=== PATIENT | female | born 1990 | race Caucasian/White ===

== ENCOUNTER 2016-11-19 20:24 | Outpatient (CLI) | payer MEDICAID ==
[2016-11-19 20:57] LABS: APPEARANCE,URINE CLEAR; BILIRUBIN,URINE NEGATIVE (NEGATIVE); GLUCOSE, URINE NEGATIVE (NEGATIVE); KETONES,URINE NEGATIVE (NEGATIVE); LEUKOCYTE ESTERASE,URINE MODERATE (NEGATIVE); NITRITE,URINE NEGATIVE (NEGATIVE); PROTEIN,URINE NEGATIVE (NEGATIVE); URINE SPECIFIC GRAVITY 1.006; UROBILINOGEN,URINE NEGATIVE mg/dL (<2.0)
[2016-11-19 21:20] LABS: URINE BARBITURATES SCREEN NEGATIVE; URINE OPIATES LOW NEGATIVE; URINE PHENCYCLIDINE SCREEN NEGATIVE
[2016-11-19 21:23] LABS: URINE METHADONE SCREEN UNCONFIRMED POSITIVE
--- NOTE | 2016-11-20 00:21 | L&D Discharge Summary ---
OB Discharge Summary Datetime Report Generated by CPN: 11/20/2016 00:20 DISCHARGE DIAGNOSIS Diagnosis/Symptoms: Other Diagnoses/Symptoms Other: false labor Gestation: 34.5 Number of Babies in Womb: 1 Parity: 3 DIET/ACTIVITY/RESTRICTIONS Diet: Regular Activity: Normal Activity Activity Restrictions: No Exercising; No Lifting; No Driving; Minimize Walking; No Sexual Activity TEACHING/INSTRUCTIONS/REFERRALS Instructions Given To: patient Instructions Understood: Patient Verbalized Understanding Referrals: None Educational Materials- Other: pre term labor DISCHARGE INFORMATION Discharge Date/Time: 11/19/2016 21:17 Discharged To: Home Discharge Provider Name: Dr Babcock Accompanied By: sig other Discharge Method: Wheelchair Condition: Stable FOLLOW UP INFORMATION Follow Up With: [facility] Follow Up On: Tomorrow Follow Up Phone Number: [facility] -
== END 2016-11-19 21:20 | disposition home or self-care (01) ==
LOC: LC 20:24
PROVIDERS: ATTEND Obstetrics & Gynecology
PROC: 4A1HXCZ Monitoring of Products of Conception, Cardiac Rate, External Approach (ICD-10-PCS; principal; 2016-11-19)
DX: O47.03 False labor before 37 completed weeks of gestation, third trimester (principal); Z3A.34 34 weeks gestation of pregnancy
CPT/HCPCS: 59025; 80307; 81001

== ENCOUNTER 2016-11-21 11:35 | Inpatient (IN) | payer MEDICAID ==
--- NOTE | 2016-11-21 12:02 | Non Stress Test Report ---
Non Stress Test Datetime Report Generated by CPN: 11/21/2016 12:02 DEMOGRAPHIC Test Number: 1 EGA NST: 34.5 INDICATION Indication for Study: Other Indication for Study (NST) Other: labor check MONITORING Time on Monitor: 11/19/2016 20:30 Time off Monitor: 11/19/2016 21:16 NST Duration: 46 NST INTERVENTIONS NST Interventions: PO Hydration Physician Notified NST: Dr Babcock BABY A: [id number] BABY A Movement : Present Contraction Frequency : none FHR Baseline : 130 Accelerations : 15X15 Decelerations : None NST Review: Meets Criteria for Reactive NST NST Review and Verified By : JAMIE Sexton NST Results: Reactive NST REPORT Report Trigger: Send Report
[2016-11-21 12:36] LABS: AMNISURE (ROM) NEGATIVE (NEGATIVE)
[2016-11-21 12:44] LABS: APPEARANCE,URINE CLEAR; BILIRUBIN,URINE NEGATIVE (NEGATIVE); GLUCOSE, URINE NEGATIVE (NEGATIVE); KETONES,URINE NEGATIVE (NEGATIVE); LEUKOCYTE ESTERASE,URINE SMALL (NEGATIVE); NITRITE,URINE NEGATIVE (NEGATIVE); PROTEIN,URINE NEGATIVE (NEGATIVE); URINE SPECIFIC GRAVITY 1.009; UROBILINOGEN,URINE NEGATIVE mg/dL (<2.0)
[2016-11-21] MEDS ORDERED: PENICILLIN G-K 5 MILLION UNIT VIAL ONE (12:46)
[2016-11-21] MEDS ORDERED: OXYTOCIN/NORMAL SALINE 20 UNIT/1,000 ML RTUINJ ONE (12:47)
[2016-11-21 12:57] LABS: URINE BARBITURATES SCREEN NEGATIVE; URINE OPIATES LOW NEGATIVE; URINE PHENCYCLIDINE SCREEN NEGATIVE
[2016-11-21 13:01] LABS: URINE METHADONE SCREEN UNCONFIRMED POSITIVE
[2016-11-21] MEDS ORDERED: RINGERS SOLUTION,LACTATED 1,000 ML IV PRN (13:04)
[2016-11-21] MEDS ORDERED: RINGERS SOLUTION,LACTATED 300 ML IV ONE (13:04)
[2016-11-21] MEDS ORDERED: OXYTOCIN/NORMAL SALINE 1,000 ML IV PRN ×2 (13:04→18:11)
[2016-11-21] MEDS ORDERED: PENICILLIN G POTASSIUM 5,000,000 UNIT in DEXTROSE 5%-WATER 100 ML IV ONE (13:06)
[2016-11-21 13:24] LABS: ABSOLUTE EOSINOPHILS # (AUTO) 0.1 10^3/uL (0.0-0.6); ABSOLUTE LYMPHOCYTES (AUTO) 1.7 10^3/uL (0.5-4.7); ABSOLUTE MONOCYTES (AUTO) 0.7 10^3/uL (0.1-1.4); ABSOLUTE NEUT (AUTO) 10.4 10^3/uL (1.7-8.2); BASOPHILS % (AUTO) 0.1 % (0-2); EOSINOPHILS % (AUTO) 0.6 % (0-6); HEMATOCRIT 34.6 % (36.0-47.0); HGB HCT DIFFERENCE 1.4; LYMPHOCYTES % (AUTO) 13.2 % (13-45); MEAN CORPUSCULAR HEMOGLOBIN 31.6 pg (27.0-33.4); MEAN CORPUSCULAR HGB CONC 34.5 g/dL (32.0-36.0); MEAN CORPUSCULAR VOLUME 92 fl (80-97); MONOCYTES % (AUTO) 5.2 % (3-13); RED BLOOD COUNT 3.79 10^6/uL (3.72-5.28); RED CELL DISTRIBUTION WIDTH 12.6 % (11.5-14.0); SEGMENTED NEUTROPHILS % (AUTO) 80.9 % (42-78); WHITE BLOOD COUNT 12.9 10^3/uL (4.0-10.5)
[2016-11-21 13:34] LABS: ALANINE AMINOTRANSFERASE 32 U/L (9-52); ALBUMIN 3.5 g/dL (3.5-5.0); ALKALINE PHOSPHATASE 281 U/L (38-126); ANION GAP 10 (5-19); ASPARTATE AMINO TRANSFERASE 34 U/L (14-36); BILIRUBIN,DIRECT 0.2 mg/dL (0.0-0.4); BILIRUBIN,TOTAL 0.5 mg/dL (0.2-1.3); BLOOD UREA NITROGEN 10 mg/dL (7-20); CALCIUM 9.3 mg/dL (8.4-10.2); CARBON DIOXIDE 24 mmol/L (22-30); CHLORIDE 103 mmol/L (98-107); GLUCOSE 81 mg/dL (75-110); LDH 410 U/L (313-618); POTASSIUM 4.3 mmol/L (3.6-5.0); SODIUM 136.8 mmol/L (137-145); TOTAL PROTEIN 6.7 g/dL (6.3-8.2); URIC ACID 3.9 mg/dL (2.5-6.2)
[2016-11-21] MEDS ORDERED: BENZOIN/ALOE VERA/STORAX/TOLU TINCTURE 60 ML TP PRN (16:22)
[2016-11-21] MEDS ORDERED: FENTANYL/BUPIVACAINE/NS/PF 100 ML EPI PRN (16:22)
[2016-11-21] MEDS ORDERED: FENTANYL/BUPIVACAINE/NS/PF 0 MCG/0 ML RTUINJ EPI ONE (16:41)
[2016-11-21] MEDS ORDERED: BUPIVACAINE HCL 0.25 % INJ/PF (2.5 MG/1 ML) 30 ML VIAL ONE (16:41)
[2016-11-21] MEDS ORDERED: EPHEDRINE SULFATE INJ 50 MG/1 ML AMPULE ONE (16:41)
[2016-11-21] MEDS ORDERED: MISOPROSTOL 0.2 MG TABLET ONE (16:50)
[2016-11-21] MEDS ORDERED: LIDOCAINE 1% INJ-PF (10 MG/ML) 30 ML SDV ONE (16:50)
[2016-11-21] MEDS ORDERED: PENICILLIN G POTASSIUM 2,500,000 UNIT in DEXTROSE 5%-WATER 50 ML IV SCH (17:07)
[2016-11-21] MEDS ORDERED: BUPIVACAINE HCL 0.25 % INJ/PF (2.5 MG/1 ML) 30 ML VIAL INFIL ONE (17:30)
[2016-11-21] MEDS ORDERED: PROMETHAZINE HCL 25 MG TABLET PO PRN (18:11)
[2016-11-21] MEDS ORDERED: PROMETHAZINE HCL 25 MG SUPP.RECT PR PRN (18:11)
[2016-11-21] MEDS ORDERED: MAGNESIUM HYDROXIDE SUSP 30 ML UDCUP PO PRN (18:11)
[2016-11-21] MEDS ORDERED: DIPH/PERTUSS(ACELL)/TETANUS VAC/PF 0.5 ML SYR (>=10YO) IM PRN (18:11)
[2016-11-21] MEDS ORDERED: DIPHENHYDRAMINE HCL 25 MG CAPSULE PO PRN (18:11)
[2016-11-21] MEDS ORDERED: BENZOCAINE/MENTHOL AEROSOL SPRAY 56 ML TOP PRN (18:11)
[2016-11-21] MEDS ORDERED: NA PHOS,M-B/NA PHOS,DI-BA (ADULT) 133 ML ENEMA PR PRN (18:11)
[2016-11-21] MEDS ORDERED: PROMETHAZINE HCL INJ 25 MG/1 ML VIAL IV PRN (18:11)
[2016-11-21] MEDS ORDERED: MEASLES,MUMPS&RUBELLA VACC/PF 0.5 ML VIAL SUBCUT PRN (18:11)
[2016-11-21] MEDS ORDERED: ACETAMINOPHEN 650 MG SUPP.RECT PR PRN (18:11)
[2016-11-21] MEDS ORDERED: PSEUDOEPHEDRINE HCL 30 MG TABLET PO PRN (18:11)
[2016-11-21] MEDS ORDERED: GLYCERIN/WITCH HAZEL LEAF 1 EACH MED..PAD TP PRN (18:11)
[2016-11-21] MEDS ORDERED: DIBUCAINE 1% OINTMENT 28 GM TP PRN (18:11)
[2016-11-21] MEDS ORDERED: ZOLPIDEM TARTRATE 5 MG TABLET PO PRN (18:11)
--- NOTE | 2016-11-21 18:26 | Delivery Summary ---
Del Sum A-C Datetime Report Generated by CPN: 11/21/2016 18:26 DELIVERY PERSONNEL DELIVERY PERSONNEL: [id number] Delivery Doctor:: Yessi Little MD Labor and Delivery Nurse:: Zelda Branch RNrn concurrent review Nurse:: Diana Quijano RN Manager Sterile:: Dave Collins MD Nursery Nurse:: Tamika Emery RN Director Diversity/CHANGEOVER OPERATOR: Nathaly Yang CNA II Director Diversity/CHANGEOVER OPERATOR: Jennifer Polo, TRACK REPAIR WORKER MATERNAL INFORMATION Delivery Anesthesia: None Medications After Delivery: Pitocin Bolus-Please Comment Meds After Delivery Comment: Pitocin 20 unit bolus Estimated Blood Loss (ml): 150 Maternal Complications: Premature Rupture of Membranes Other Maternal Complications: Methadone use Provider Comments: pt progressed to over intact perineum of male infant. Head delivered OA and shoulders and body delivered easily thereafter. Cord clamped and cut. Placenta spont and intact. Mom and baby doing well. LABOR SUMMARY EDC: 12/26/2016 00:00 No. Babies in Womb: 1 Attempted: No Labor Anesthesia: None LABOR INFORMATION Reason for Induction: Premature Rupture of Membranes Onset of Labor: 11/21/2016 14:30 Complete Dilatation: 11/21/2016 16:54 Oxytocin: Induction Group B Beta Strep: unknown Antibiotics # of Doses: 1 Name of Antibiotic Given: Penicillin Steroids Given: None Reason Steroids Not Administered: Not Applicable MEMBRANES Membranes Rupture Method: Spontaneous Rupture of Membranes: 11/21/2016 11:00 Length of Rupture (hr): 5.97 Amniotic Fluid Color: Clear Amniotic Fluid Amount: Moderate Amniotic Fluid Odor: Normal STAGES OF LABOR Stage 1 hr: 2 Stage 1 min: 24 Stage 2 hr: 0 Stage 2 min: 4 Stage 3 hr: 0 Stage 3 min: 3 Total Time in Labor hr: 2 Total Time in Labor min: 31 VAGINAL DELIVERY Episiotomy: None Laceration Extension: N/A Laceration Type: None Laceration Repair: Not Applicable Sponge Count Correct: N/A Sharps Count Correct: N/A BABY A INFORMATION Delivery Date/Time: 11/21/2016 16:58 Method of Delivery: Vaginal Born in Route : No : N/A Forceps: N/A Vacuum Extraction: N/A Shoulder Dystocia : No PRESENTATION/POSITION BABY A Presentation: Cephalic Cephalic Presentation: Vertex Vertex Position: Left Occipital Anterior Breech Presentation: N/A PLACENTA INFORMATION BABY A Placenta Delivery Time : 11/21/2016 17:01 Placenta Method of Delivery: Spontaneous Placenta Status: Delivered SCORES BABY A Heart Rate 1 min: >100 bpm Resp Effort 1 min: Good Cry Reflex Irritability 1 min: Cough or Sneeze or Pulls Away Muscle Tone 1 min: Active Motion Color 1 min: Blue/Pale Resuscitation Effort 1 min: N/A SCORE 1 MIN: 8 Heart Rate 5 min: >100 bpm Resp Effort 5 min: Good Cry Reflex Irritability 5 min: Cough or Sneeze or Pulls Away Muscle Tone 5 min: Active Motion Color 5 min: Blue/Pale Resuscitation Effort 5 min: N/A SCORE 5 MIN: 8 INFANT INFORMATION BABY A Gestational Age at Delivery: 35.0 Gestational Status: Late - 34- 36.6 Weeks Outcome : Liveborn Infant Condition : Stable Sex: Male IDENTIFICATION BABY A Verification Date/Time: 11/21/2016 17:14 ID Band Number: [id number] Mother's Name Verified: Yes Infant RN Verifying : Lor Ty RN A. Samm RN WEIGHT/LENGTH BABY A Infant Birthweight (gm): 2240 Weight (lb): 4 Weight (oz): 15 Infant Length (in): 17.50 Length (cm): 44.45 CORD INFORMATION BABY A No. Cord Vessels: 3 Nuchal Cord : N/A Cord Blood Taken: No-Annotate Suction: Mouth ASSESSMENT BABY A Infant Complications: None Physical Findings at Delivery: Within Normal Limits Respirations: Appears Normal Skin to Skin: Yes Skin to Skin Time (min): 2 Manager Sterile/ALS Called : No Care By: Tamika Emery RN Transferred To: Nursery SIGNATURES Signature: with User ID: [email or web address]
[2016-11-21] MEDS ORDERED: IBUPROFEN 800 MG TABLET ONE (19:14)
--- NOTE | 2016-11-21 19:57 | Admission Physical ---
Datetime Report Generated by CPN: 11/21/2016 19:56 CURRENT ADMISSION Hx Assessment: The History has been Reviewed and is Current Chief Complaint: Suspected Ruptured Membranes Indication for Induction: PROM Admit Plan: Initiate Labor Induction Protocol ALLERGIES Medication Allergies: Yes Medication Allergies: iodine (11/21/2016); shellfish derived (11/21/2016) Medication Allergies: iodine (11/21/2016) Medication Allergies: iodine (11/19/2016) Medication Allergies: iodine (11/19/2016)-shellfish Medication Allergies: No Known Allergies (02/16/2016) Medication Allergies: iodine Latex: No Latex Allergies Food Allergies: none Environmental Allergies: none OBSTETRICAL HISTORY EDC: 12/26/2016 00:00 : 5 Para: 3 Term: 2 : 1 SAB: 1 IAB: 0 Ectopic: 0 Livin Cesareans: 0 VBACs: 0 Multiple Births: 0 Gestational Diabetes: No Rh Sensitization: No Incompetent Cervix: Yes ROBIN: No Infertility: No ART Treatment: No Uterine Anomaly: No IUGR: No Hx Previous C/S: No Macrosomia: No Hx Loss/Stillborn: No PIH: No Hx : No Placenta Previa/Abruption: No Depression/PP Depression: No PTL/PROM: No Post Hemorrhage: No Current Procedures: Ultrasound; NST Obstetrical History Comments: 1st- 2006 term vaginal delivery 2nd- 2008 term vaginal delivery 3rd- 2013 dimiss at 21 weeks 4th- 2014 delivery at 36 weeks 5th- current 2016 on methadone, incompetent cervix and watching for GDM but not diagnosed as of yet SEE RECORDS Alcohol: No Marijuana : No Cocaine: No Other Illicit Drugs: No Cigarettes: Current Everyday Smoker. [id number] Cigarette Frequency: 5 - 10 per day MEDICAL HISTORY Diabetes: No Blood Transfusion: No Pulmonary Disease (Asthma, TB): No Breast Disease: No Hypertension: No Fuel Cell Repairer Surgery: No Heart Disease: No Hosp/Surgery: No Autoimmune Disorder: No Anesthetic Complications: No Kidney Disease: No Abnormal Pap Smear: No Neuro/Epilepsy: No Psychiatric Disorders: No Other Medical Diseases: No Hepatitis/Liver Disease: No Significant Family History: No Varicosities/Phlebitis: No Trauma/Violence : No Thyroid Dysfunction: No INFECTIOUS HISTORY Gonorrhea: No Genital Herpes: No Chlamydia: No Tuberculosis: No Syphilis: No Hepatitis: No HIV/AIDS Exposure: No Rash or Viral Illness: No HPV: No PHYSICAL EXAM General: Normal HEENT: Normal Neurologic: Normal Thyroid: Normal Heart: Normal Lungs: Normal Breast: Normal Back: Normal Abdomen: Normal Genitourinary Exam: Normal Extremities: Normal DTRs: Normal Pelvic Type: Adequate Physical Exam Comments: pt with gross srom-clear fluid efw 5pounds 1 oz on recent sono VAGINAL EXAM Dilatation: 4 Effacement: 90 Station: -1 MEMBRANES Amniotic Fluid Color: Clear FETUS A EGA: 35.0 Monitoring: External US FHR Category: Category I Admit Comment: admit with prom at 35 wks, tob abuse, methadone use -pcn gbs prophylaxis, pit induction, discharge planning consult PLANS FOR LABOR AND DELIVERY Labor and Delivery: None Pain Management: Epidural Feeding Preference: Breast Benefit of Breast Feed Discussed: Yes Circumcision: Yes INFORMED CONSENT Signature: with User ID: [email or web address]
[2016-11-21] MEDS: IBUPROFEN 800 MG TABLET PO SCH (21:15)
[2016-11-21] MEDS: FAMOTIDINE 20 MG TABLET PO SCH (21:43)
[2016-11-21 22:07] LABS: CHLAM PCR NOT DETECTED (NOT DETECT)
--- NOTE | 2016-11-21 22:55 | L&D Discharge Summary ---
OB Discharge Summary Datetime Report Generated by CPN: 11/21/2016 22:55 DISCHARGE DIAGNOSIS Diagnosis/Symptoms: Other Diagnoses/Symptoms Other: false labor Gestation: 35.0 Number of Babies in Womb: 1 Parity: 3 DIET/ACTIVITY/RESTRICTIONS Diet: Regular Activity: Normal Activity Activity Restrictions: No Exercising; No Lifting; No Driving; Minimize Walking; No Sexual Activity TEACHING/INSTRUCTIONS/REFERRALS Instructions Given To: patient Instructions Understood: Patient Verbalized Understanding Referrals: None Educational Materials- Other: pre term labor DISCHARGE INFORMATION Discharge Date/Time: 11/19/2016 21:17 Discharged To: Home Discharge Provider Name: Dr Babcock Accompanied By: sig other Discharge Method: Wheelchair Condition: Stable FOLLOW UP INFORMATION Follow Up With: [facility] Follow Up On: Tomorrow Follow Up Phone Number: [facility] -
[2016-11-22] MEDS: IBUPROFEN 800 MG TABLET PO SCH ×2 (05:13→22:14)
[2016-11-22 07:35] LABS: HEMOGLOBIN 11.9 g/dL (12.0-15.5); HGB HCT DIFFERENCE 0.7; MEAN CORPUSCULAR HEMOGLOBIN 31.5 pg (27.0-33.4); MEAN CORPUSCULAR HGB CONC 34.1 g/dL (32.0-36.0); MEAN CORPUSCULAR VOLUME 92 fl (80-97); RED BLOOD COUNT 3.79 10^6/uL (3.72-5.28); RED CELL DISTRIBUTION WIDTH 12.7 % (11.5-14.0); WHITE BLOOD COUNT 10.4 10^3/uL (4.0-10.5)
[2016-11-22] MEDS ORDERED: METHADONE HCL 10 MG TABLET PO SCH (09:00)
--- NOTE | 2016-11-22 09:59 | PDOC DISCHARGE SUMMARY ---
Final Diagnosis Discharge Date: 11/22/16 - Final Diagnosis (1) Delivery normal Is this a current diagnosis for this admission?: Yes (2) Methadone maintenance treatment complicating Is this a current diagnosis for this admission?: Yes Discharge Data - Discharge Medication Home Medications: Bupropion HCl [Wellbutrin 100 mg Tablet] 0.5 tab PO DAILY 11/19/16 Methadone HCl [Methadose] 75 mg PO DAILY 11/19/16 Vit/Iron Fumarate/FA [ Tablet] 1 tab PO DAILY 11/19/16 Omeprazole Magnesium [Prilosec Otc] 40 mg PO DAILY 11/21/16 Reason(s) for Admission: Induction of Labor Procedures: NST Intrapartum Procedure(s): Spontaneous Vaginal Delivery - Diagnosis Test Laboratory: Temp Pulse Resp BP Pulse Ox 97.9 F 77 15 108/68 99 11/22/16 08:03 11/22/16 08:03 11/22/16 08:03 11/22/16 08:03 11/22/16 08:03 11/21/16 11/21/16 11/22/16 11:55 12:58 07:14 RBC 3.79 3.79 Hgb 12.0 11.9 L Hct 34.6 L 35.0 L Urine Opiates Screen NEGATIVE - Discharge information/Instructions Discharge Activity: Activity As Tolerated Discharge Diet: Regular Disposition: HOME, SELF-CARE Follow up with: [facility] in: 4
[2016-11-22] MEDS ORDERED: FERROUS SULFATE 325 MG TABLET PO SCH (10:00)
[2016-11-22] MEDS ORDERED: DOCUSATE SODIUM 100 MG CAPSULE PO SCH (10:00)
[2016-11-22] MEDS ORDERED: SENNOSIDES/DOCUSATE 8.6-50 MG 1 EACH TABLET PO SCH (10:00)
[2016-11-22] MEDS ORDERED: PRENATAL VITAMIN W-O CA NO5/FE FUMARATE/FA CAPSULE PO SCH (10:00)
--- NOTE | 2016-11-22 10:10 | PDOC PROGRESS REPORT ---
Subjective-OB Subjective: Post Delivery Day: 26 year old. Denies any needs at this time hearing screening in progress per RN pt doing well was considering nicotine patch or wellbutrin also taking methadone well continue wellbutrin 100 mg po qd d/c in AM Physical Exam (OB) Vital Signs: Temp Pulse Resp BP Pulse Ox 97.9 F 77 15 108/68 99 11/22/16 08:03 11/22/16 08:03 11/22/16 08:03 11/22/16 08:03 11/22/16 08:03 Intake & Output 11/21/16 11/22/16 11/23/16 06:59 06:59 06:59 Weight 75.6 kg - Lochia Lochia Amount: Small 10-25 ml Lochia Color: Rubra/Red - Abdomen Description: Soft Hernia Present: No Fundal Description: Firm, Midline Fundal Height: u/u - u/2 Objective-Diagnostic Laboratory: 11/22/16 07:14 11/21/16 12:58 11/21/16 11/21/16 11/21/16 11:55 12:58 12:58 WBC 12.9 H RBC 3.79 Hgb 12.0 Hct 34.6 L MCV 92 MCH 31.6 MCHC 34.5 RDW 12.6 Plt Count 115 L Seg Neutrophils % 80.9 H Lymphocytes % 13.2 Monocytes % 5.2 Eosinophils % 0.6 Basophils % 0.1 Absolute Neutrophils 10.4 H Absolute Lymphocytes 1.7 Absolute Monocytes 0.7 Absolute Eosinophils 0.1 Absolute Basophils 0.0 Sodium 136.8 L Potassium 4.3 Chloride 103 Carbon Dioxide 24 Anion Gap 10 BUN 10 Creatinine 0.60 Est GFR ( Amer) > 60 Est GFR (Non-Af Amer) > 60 Glucose 81 Uric Acid 3.9 Calcium 9.3 Total Bilirubin 0.5 AST 34 ALT 32 Alkaline Phosphatase 281 H Total Protein 6.7 Albumin 3.5 Urine Color YELLOW Urine Appearance CLEAR Urine pH 7.0 Ur Specific [place] 1.009 Urine Protein NEGATIVE Urine Glucose (UA) NEGATIVE Urine Ketones NEGATIVE Urine Blood NEGATIVE Urine Nitrite NEGATIVE Ur Leukocyte Esterase SMALL H Urine WBC (Auto) 3 Urine RBC (Auto) 3 Blood Type Antibody Screen 11/21/16 11/22/16 11/22/16 12:58 07:14 07:14 WBC 10.4 RBC 3.79 Hgb 11.9 L Hct 35.0 L MCV 92 MCH 31.5 MCHC 34.1 RDW 12.7 Plt Count 117 L Seg Neutrophils % Lymphocytes % Monocytes % Eosinophils % Basophils % Absolute Neutrophils Absolute Lymphocytes Absolute Monocytes Absolute Eosinophils Absolute Basophils Sodium Potassium Chloride Carbon Dioxide Anion Gap BUN Creatinine Est GFR ( Amer) Est GFR (Non-Af Amer) Glucose Uric Acid Calcium Total Bilirubin AST ALT Alkaline Phosphatase Total Protein Albumin Urine Color Urine Appearance Urine pH Ur Specific [place] Urine Protein Urine Glucose (UA) Urine Ketones Urine Blood Urine Nitrite Ur Leukocyte Esterase Urine WBC (Auto) Urine RBC (Auto) Blood Type A NEGATIVE A NEGATIVE Antibody Screen POSITIVE Assessment and Plan(PN) - Assessment and Plan (1) Delivery normal Is this a current diagnosis for this admission?: Yes (2) Methadone maintenance treatment complicating Is this a current diagnosis for this admission?: Yes
[2016-11-22] MEDS: FAMOTIDINE 20 MG TABLET PO SCH (22:14)
[2016-11-23] MEDS: IBUPROFEN 800 MG TABLET PO SCH (06:08)
[2016-11-23 09:58] VITALS: BP 121/82
--- NOTE | 2016-11-23 10:00 | PDOC PROGRESS REPORT ---
Subjective-OB Subjective: Post Delivery Day: 26 year old. Denies any needs at this time. Ready for discharge but wants to nest as baby to stay for light therapy. Physical Exam (OB) Vital Signs: Temp Pulse Resp BP Pulse Ox 98.0 F 90 18 121/82 99 11/23/16 08:30 11/23/16 08:30 11/23/16 08:30 11/23/16 08:30 11/23/16 08:30 Intake & Output 11/22/16 11/23/16 11/24/16 06:59 06:59 06:59 Intake Total 0 Balance 0 Weight 75.6 kg - Lochia Lochia Amount: Scant < 10 ml Lochia Color: Rubra/Red - Abdomen Description: Soft, Round Hernia Present: No Bowel Sounds: Normoactive Flatus Presence: Present Stool: No Fundal Description: Firm, Midline Fundal Height: u/u - u/2 Objective-Diagnostic Laboratory: 11/22/16 07:14 11/21/16 12:58 11/22/16 07:14 Blood Type A NEGATIVE
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
== END 2016-11-23 10:54 | disposition home or self-care (01) | DRG 775 ==
LOC: LC 11:35 → LR 12:41 → 2S 19:55
PROVIDERS: ADMIT Specialist; ATTEND Specialist
PROC: 10E0XZZ Delivery of Products of Conception, External Approach (ICD-10-PCS; principal; 2016-11-21)
PROC: 4A1HXCZ Monitoring of Products of Conception, Cardiac Rate, External Approach (ICD-10-PCS; 2016-11-21)
DX: O60.14X0 Preterm labor third trimester with preterm delivery third trimester, not applicable or unspecified (principal); O34.33 Maternal care for cervical incompetence, third trimester; O99.324 Drug use complicating childbirth; F11.90 Opioid use, unspecified, uncomplicated; O99.334 Smoking (tobacco) complicating childbirth; O42.013 Preterm premature rupture of membranes, onset of labor within 24 hours of rupture, third trimester; F17.200 Nicotine dependence, unspecified, uncomplicated; Z79.899 Other long term (current) drug therapy; Z3A.35 35 weeks gestation of pregnancy; Z37.0 Single live birth; Z91.013 Allergy to seafood
CPT/HCPCS: 36415; 80053; 80307; 81001; 83615; 84112; 84550; 85025; 85027; 85461; 86592; 86850; 86870; 86900; 86901; 87491; 87591; 88307; J2540; J2590; J2790; J3490

== ENCOUNTER 2018-07-14 16:40 | Emergency (ER) | payer BC, MEDICAID ==
[2018-07-14] MEDS ORDERED: ONDANSETRON 4 MG TAB.RAPDIS PO ONE (17:02)
--- NOTE | 2018-07-14 17:04 | ER Document Report ---
ED Medical Screen (RME) - General Chief Complaint: Nausea Stated Complaint: DIZZY, NAUSEA, VISION ISSUE Time Seen by Provider: 07/14/18 16:56 Notes: Patient is a 28-year-old female is previously healthy that presents to the emergency department for chief complaint of having episodes of lightheadedness, nausea but no vomiting. She states she is having episodes that have been going on for approximately 3 months, where she is lightheaded, and she will occasionally get blurred vision with it as well particularly when she is out doing activities, now seems to be getting worse, she used to eat something when she had these episodes and that would help but now that is not helping. ROS: Other than noted above, the 12 point review of systems was reviewed with the patient and were negative, all pertinent findings are included in the HPI. PHYSICAL EXAMINATION: Vital signs reviewed. GENERAL: Well-appearing, well-nourished and in no acute distress. HEAD: Atraumatic, normocephalic. EYES: Pupils equal round extraocular movements intact, conjunctiva are normal. ENT: Nares patent NECK: Normal range of motion CV: Heart regular rate and rhythm LUNGS: No respiratory distress Musculoskeletal: Normal range of motion NEUROLOGICAL: Normal speech PSYCH: Normal mood, normal affect. MDM: Patient seen and examined for rapid initial assessment. Vital signs reviewed. A comprehensive ED assessment and evaluation of the patient, analysis of test results and completion of the medical decision making process will be conducted by additional ED providers. *Note is created using voice recognition software and may contain spelling, syntax or grammatical errors. TRAVEL OUTSIDE OF THE [place] IN LAST 30 DAYS: No - Related Data Allergies/Adverse Reactions: iodine Allergy (Verified 11/21/16 13:08) shellfish derived Allergy (Verified 11/21/16 13:09) Past Medical History - Social History Frequency of alcohol use: None Drug Abuse: None Renal/ Medical History: Denies: Hx Peritoneal Dialysis Psychiatric Medical History: Reports: Hx Depression Past Surgical History: Reports: Hx Abdominal Surgery, Hx Gynecologic Surgery - Laparoscopy for unknown reason - Immunizations Hx Diphtheria, Pertussis, Tetanus Vaccination: Yes Physical Exam - Vital signs Vitals: Temp Pulse Resp BP Pulse Ox 97.8 F 97 14 114/71 98 07/14/18 16:41 07/14/18 16:41 07/14/18 16:41 07/14/18 16:41 07/14/18 16:41 Course - Vital Signs Vital signs: Temp Pulse Resp BP Pulse Ox 97.8 F 97 14 114/71 98 07/14/18 16:41 07/14/18 16:41 07/14/18 16:41 07/14/18 16:41 07/14/18 16:41 Doctor's Discharge - Discharge Referrals: CANDELARIO TINAJERO MD [Primary Care Provider] - Follow up as needed
[2018-07-14 17:57] LABS: ABSOLUTE EOSINOPHILS # (AUTO) 0.3 10^3/uL (0.0-0.6); ABSOLUTE LYMPHOCYTES (AUTO) 1.4 10^3/uL (0.5-4.7); ABSOLUTE MONOCYTES (AUTO) 0.3 10^3/uL (0.1-1.4); ABSOLUTE NEUT (AUTO) 1.8 10^3/uL (1.7-8.2); EOSINOPHILS % (AUTO) 6.9 % (0-6); HEMATOCRIT 38.7 % (36.0-47.0); HEMOGLOBIN 12.9 g/dL (12.0-15.5); LYMPHOCYTES % (AUTO) 37.2 % (13-45); MEAN CORPUSCULAR HGB CONC 33.4 g/dL (32.0-36.0); MEAN CORPUSCULAR VOLUME 93 fl (80-97); MONOCYTES % (AUTO) 7.8 % (3-13); PLATELET COUNT 182 10^3/uL (150-450); RED BLOOD COUNT 4.17 10^6/uL (3.72-5.28); RED CELL DISTRIBUTION WIDTH 14.1 % (11.5-14.0); SEGMENTED NEUTROPHILS % (AUTO) 47.1 % (42-78); TOTAL CELLS COUNTED % (AUTO) 100 %; WHITE BLOOD COUNT 3.8 10^3/uL (4.0-10.5)
[2018-07-14 18:02] LABS: APPEARANCE,URINE SLIGHTLY-CLOUDY; BILIRUBIN,URINE NEGATIVE (NEGATIVE); COLOR,URINE YELLOW; GLUCOSE, URINE NEGATIVE (NEGATIVE); KETONES,URINE NEGATIVE (NEGATIVE); LEUKOCYTE ESTERASE,URINE SMALL (NEGATIVE); NITRITE,URINE POSITIVE (NEGATIVE); PROTEIN,URINE NEGATIVE (NEGATIVE); URINE SPECIFIC GRAVITY 1.016; UROBILINOGEN,URINE NEGATIVE mg/dL (<2.0)
[2018-07-14 18:17] LABS: ALANINE AMINOTRANSFERASE 74 U/L (9-52); ALBUMIN 4.2 g/dL (3.5-5.0); ALKALINE PHOSPHATASE 173 U/L (38-126); ANION GAP 13 (5-19); ASPARTATE AMINO TRANSFERASE 46 U/L (14-36); BILIRUBIN,DIRECT 0.2 mg/dL (0.0-0.4); BILIRUBIN,TOTAL 0.5 mg/dL (0.2-1.3); BLOOD UREA NITROGEN 16 mg/dL (7-20); CALCIUM 9.8 mg/dL (8.4-10.2); CARBON DIOXIDE 29 mmol/L (22-30); CHLORIDE 99 mmol/L (98-107); GLUCOSE 90 mg/dL (75-110); POTASSIUM 4.4 mmol/L (3.6-5.0); SODIUM 140.8 mmol/L (137-145); TOTAL PROTEIN 7.3 g/dL (6.3-8.2)
--- NOTE | 2018-07-14 19:41 | ER Document Report ---
ED General - General Chief Complaint: Nausea Stated Complaint: DIZZY, NAUSEA, VISION ISSUE Time Seen by Provider: 07/14/18 16:56 Mode of Arrival: Ambulatory Information source: Patient Notes: Patient is a 28-year-old female who presents with chief complaint of dysuria and nausea. Patient reports that the nausea has been going on for 3 months. She states that usually when she gets nauseous she eats something and then feels better. She denies any vomiting, diarrhea, fever, abdominal pain or abnormal vaginal discharge. TRAVEL OUTSIDE OF THE [place] IN LAST 30 DAYS: No - Related Data Allergies/Adverse Reactions: iodine Allergy (Verified 11/21/16 13:08) shellfish derived Allergy (Verified 11/21/16 13:09) Past Medical History - General Information source: Patient - Social History Smoking Status: Current Every Day Smoker Frequency of alcohol use: None Drug Abuse: None Family History: Reviewed & Not Pertinent Patient has suicidal ideation: No Patient has homicidal ideation: No Renal/ Medical History: Denies: Hx Peritoneal Dialysis Psychiatric Medical History: Reports: Hx Depression Past Surgical History: Reports: Hx Abdominal Surgery, Hx Gynecologic Surgery - Laparoscopy for unknown reason - Immunizations Hx Diphtheria, Pertussis, Tetanus Vaccination: Yes Review of Systems - Review of Systems Gastrointestinal: Nausea Genitourinary: Dysuria -: Yes All other systems reviewed and negative Physical Exam - Vital signs Vitals: Temp Pulse Resp BP Pulse Ox 97.8 F 97 14 114/71 98 07/14/18 16:41 07/14/18 16:41 07/14/18 16:41 07/14/18 16:41 07/14/18 16:41 - Notes Notes: PHYSICAL EXAMINATION: GENERAL: Well-appearing, well-nourished and in no acute distress. HEAD: Atraumatic, normocephalic. EYES: Pupils equal round and reactive to light, extraocular movements intact, conjunctiva are normal. ENT: Nares patent, oropharynx clear without exudates. Moist mucous membranes. NECK: Normal range of motion, supple without lymphadenopathy LUNGS: Breath sounds clear to auscultation bilaterally and equal. No wheezes rales or rhonchi. HEART: Regular rate and rhythm without murmurs ABDOMEN: Soft, nontender, nondistended abdomen. No guarding, no rebound. No masses appreciated. Female : No CVA tenderness. Musculoskeletal: Normal range of motion, no pitting or edema. No cyanosis. NEUROLOGICAL: Cranial nerves grossly intact. Normal speech, normal gait. Normal sensory, motor exams PSYCH: Normal mood, normal affect. SKIN: Warm, Dry, normal turgor, no rashes or lesions noted. Course - Re-evaluation Re-evalutation: CBC is unremarkable. CMP unremarkable other than mildly elevated LFTs. Urinalysis with positive nitrites, 3+ bacteria and small leukocyte esterase. Patient's physical examination is unremarkable, abdomen is soft and nontender. Patient will be placed on antibiotics for urinary tract infection, culture will be sent. Patient will be referred back to her primary care provider to deal with the issue of her chronic nausea over the last 3 months. - Vital Signs Vital signs: Temp Pulse Resp BP Pulse Ox 97.4 F 77 19 117/79 98 07/14/18 20:25 07/14/18 20:25 07/14/18 20:25 07/14/18 20:25 07/14/18 20:25 - Laboratory Result Diagrams: 07/14/18 17:12 07/14/18 17:12 Laboratory results interpreted by me: 07/14/18 07/14/18 07/14/18 17:12 17:12 17:12 WBC 3.8 L RDW 14.1 H Eosinophils % 6.9 H AST 46 H ALT 74 H Alkaline Phosphatase 173 H Urine Nitrite POSITIVE H Ur Leukocyte Esterase SMALL H Urine Ascorbic Acid 40 H Discharge - Discharge Clinical Impression: Nausea Urinary tract infection Qualifiers: Urinary tract infection type: site unspecified Hematuria presence: without hematuria Qualified Code(s): N39.0 - Urinary tract infection, site not specified Condition: Stable Disposition: HOME, SELF-CARE Additional Instructions: URINARY TRACT INFECTION: Your evaluation indicates that you have a urinary tract infection. This is due to germs growing in the bladder. This is a common problem. This infection usually responds quickly to antibiotics. Your antibiotic should be taken exactly as prescribed. Drink plenty of fluids -- three to four quarts a day. Occasionally, a bladder anesthetic will be prescribed to help stop the feeling of urgency until the antibiotic has a chance to clear the infection. This may cause your urine to be dark orange. Certain urine infections require a culture. If the doctor obtained a culture, the results will be back in two days. You should call to see if a change in treatment is needed. A repeat urinalysis after you finish treatment is often recommended. The physician will let you know if further testing is required. Call the doctor if you develop fever, chills, flank pain, inability to urinate, or blood in the urine. ANTIBIOTIC THERAPY: You have been given an antibiotic prescription. It's important that you take all the medication, unless instructed otherwise by your physician. Failure to complete the entire course can result in relapse of your condition. Common side effects of antibiotics include nausea, intestinal cramping, or diarrhea. Women may develop vaginal yeast infections, and babies can get yeast (thrush) in the mouth following the use of antibiotics. Contact your physician if you develop significant side effects from this medication. Allergy to this antibiotic can result in hives, wheezing, faintness, or itching. If symptoms of allergy occur, stop the medication and call the doctor. CEPHALEXIN: The antibiotic you've been prescribed is a member of the cephalosporin class. This type of antibiotic covers a wide variety of infections, including those of the skin, lungs, and urinary tract. It's useful for staph infections. This antibiotic is slightly similar to the penicillin family. In rare cases , a person who is allergic to penicillin will also be allergic to this medication. If you have had a severe allergic reaction to penicillin, and have not taken this antibiotic since that time, notify your doctor. Antibiotics which cover many germs ("broad spectrum" antibiotics) are more likely to cause diarrhea or "yeast" infections. Women prone to vaginal yeast problems may suffer an attack after taking this antibiotic. In infants, oral thrush (white spots "stuck" on the cheek) or yeast diaper rash may result. See your doctor if these problems occur. Call at once if you develop itching, hives , shortness of breath, or lightheadedness. FOLLOW-UP CARE: If you have been referred to a physician for follow-up care, call the physician s office for an appointment as you were instructed or within the next two days. If you experience worsening or a significant change in your symptoms, notify the physician immediately or return to the Emergency Department at any time for re-evaluation. Take antibiotics as prescribed. Finish the entire course even if you are feeling better if you are having any pain or cramping you may take ibuprofen 600 mg every 6 hours. Use the nausea medication as directed for episodes of nausea. Please follow-up with your primary care doctor, Dr. Perez for further workup of your chronic nausea. Prescriptions: Cephalexin [Cephalexin 500 MG Tablet] 1 tab PO QID #28 tablet Ondansetron [Zofran Odt 4 mg Tablet] 1 - 2 tab PO Q4H PRN #15 tab.rapdis PRN Reason: For Nausea/Vomiting Referrals: ALEXSANDRA PEREZ DO [NO LOCAL MD] - Follow up as needed
[2018-07-14] MEDS ORDERED: ONDANSETRON ODT 4 MG TAB (6 TAB/ER DISP) PO PRN (19:56)
[2018-07-14] MEDS ORDERED: CEPHALEXIN 500 MG CAPSULE PO ONE (19:56)
[2018-07-14 20:26] VITALS: BP 117/79
--- NOTE | 2018-07-14 21:01 | EKG REPORT ---
SEVERITY:- BORDERLINE ECG - SINUS RHYTHM BORDERLINE T ABNORMALITIES, ANT-LAT LEADS : Confirmed by: Randy Steel MD 14-Jul-2018 21:00:21
== END 2018-07-14 20:29 | disposition home or self-care (01) ==
LOC: ER 16:40
DX: N39.0 Urinary tract infection, site not specified (principal); R11.0 Nausea; R42 Dizziness and giddiness; H53.9 Unspecified visual disturbance; F17.200 Nicotine dependence, unspecified, uncomplicated
CPT/HCPCS: 93005; 99284; 36415; 87086; 82962; 83690; 85025; 81025; 87088; 80053; 81001; 87186; 93010; S0119